=== PATIENT | female | born 1985 | race Hispanic/Latino ===

== ENCOUNTER 2019-05-06 18:01 | Emergency (ER) | payer BC, OTHER ==
[2019-05-06 19:06] LABS: Absolute Lymphocytes (CBC) 2.1 K/uL (0.7-4.9); Basophils % 0.5 % (0-1.3); Hematocrit 33.6 % (36.0-45.0); MPV 9.9 fL (7.6-11.3)
[2019-05-06 19:27] LABS: BUN Blood Urea Nitrogen 14 mg/dL (7-18); Bicarbonate 26 mmol/L (21-32); Glucose Level 104 mg/dL (74-106); Potassium 3.5 mmol/L (3.5-5.1); Sodium Level 141 mmol/L (136-145)
[2019-05-06] MEDS ORDERED: ONDANSETRON 4 MG/2 ML VIAL ONE (20:02)
[2019-05-06] MEDS ORDERED: AZITHROMYCIN 250 MG TAB ONE (20:02)
[2019-05-06] MEDS ORDERED: MORPHINE 2 MG/ML SYR ONE (20:02)
[2019-05-06] MEDS ORDERED: KETOROLAC 30 MG/ML INJ ONE (20:02)
[2019-05-06] MEDS ORDERED: CEFTRIAXONE/SWI 1gm 0 GM/0 ML SYR ONE (20:02)
--- NOTE | 2019-05-06 20:12 | RAD REPORT ---
EXAM DESCRIPTION: US - Transvaginal Study Probe - 05/06/2019 7:34 pm CLINICAL HISTORY: Pelvic pain COMPARISON: none FINDINGS: The uterus is retroverted measuring 9 x 4 x 5 centimeters. The endometrial stripe measures 5 millimeters.. A fibroid is not seen. The ovaries are normal in size and echotexture. Blood flow within each ovary. The right and left adnexal unremarkable. No significant free fluid is seen. IMPRESSION: Unremarkable pelvic ultrasound
--- NOTE | 2019-05-06 20:21 | RAD REPORT ---
EXAM DESCRIPTION: CT - Abdomen Pelvis W Contrast - 05/06/2019 7:58 pm CLINICAL HISTORY: Abdominal pain COMPARISON: none. TECHNIQUE: Computed axial tomography of the abdomen pelvis was obtained. 100 cc Isovue-300 was admin istered intravenously. Oral contrast was not requested which limits evaluation of bowel. All CT scans are performed using dose optimization technique as appropriate and may include automated exposure control or mA/KV adjustment according to patient size. FINDINGS: Gallstones with borderline gallbladder distention Postsurgical changes involve the stomach The liver, spleen, pancreas, adrenal and kidneys appear unremarkable. There is no evidence of diverticulitis. A portion of the appendix is seen and is normal caliber IMPRESSION: Cholelithiasis
[2019-05-06 20:24] LABS: Urine Blood 2+ (NEG); Urine Glucose NEGATIVE (NEG); Urine Protein NEGATIVE (NEG); Urine Specific Gravity >1.030 (1.005-1.030); Urine pH 5.5 (5.0-7.0)
--- NOTE | 2019-05-06 20:39 | ER ---
Nurse's Notes [facility] Name: Andreia Og Age: 33 yrs Sex: Female : 1985 Arrival Date: 05/06/2019 Time: 18:04 Bed 30 Private MD: None, None Diagnosis: Abdominal tenderness;Abdominal and pelvic pain;Cholelithiasis Presentation: 05/06 18:18 Presenting complaint: Patient states: PELVIC PAIN x3 WK, DENIES DYSURIA, VAGINAL bp BLEEDING. Transition of care: patient was not received from another setting of care. Onset of symptoms is unknown. Risk Assessment: Do you want to hurt yourself or someone else? Patient reports no desire to harm self or others. Initial Sepsis Screen: Does the patient meet any 2 criteria? No. Patient's initial sepsis screen is negative. Does the patient have a suspected source of infection? No. Patient's initial sepsis screen is negative. Care prior to arrival: None. 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 - Social history:: Smoking status: Patient/guardian denies using tobacco. - Ebola Screening: : No symptoms or risks identified at this time. - Family history:: not pertinent. Screenin:42 Abuse screen: Denies threats or abuse. Denies injuries from another. Nutritional aj1 screening: No deficits noted. Tuberculosis screening: No symptoms or risk factors identified. 19:30 Fall Risk None identified. wh Assessment: 18:42 General: Appears in no apparent distress. uncomfortable, Behavior is calm, cooperative, aj1 appropriate for age. Pain: Complains of pain in suprapubic area Pain does not radiate. Neuro: Level of Consciousness is awake, alert, obeys commands, Oriented to person, place, time, situation. Cardiovascular: Patient's skin is warm and dry. Respiratory: Airway is patent Respiratory effort is even, unlabored, Respiratory pattern is regular, symmetrical. GI: Abdomen is non-distended, Bowel sounds present X 4 quads. Abd is soft X 4 quads Abdomen is tender to palpation in suprapubic area Reports lower abdominal pain, nausea, Patient currently denies diarrhea, vomiting. : Denies burning with urination, discharge. EENT: No signs and/or symptoms were reported regarding the EENT system. Derm: No signs and/or symptoms reported regarding the dermatologic system. Skin is pink, warm \T\ dry. normal. Musculoskeletal: No signs and/or symptoms reported regarding the musculoskeletal system. Circulation, motion, and sensation intact. 19:20 Reassessment: Patient appears in no apparent distress at this time. No changes from previously documented assessment. Patient and/or family updated on plan of care and expected duration. Pain level reassessed. Patient is alert, oriented x 3, equal unlabored respirations, skin warm/dry/pink. 20:25 Reassessment: Patient appears in no apparent distress at this time. No changes from previously documented assessment. Patient and/or family updated on plan of care and expected duration. Pain level reassessed. Patient is alert, oriented x 3, equal unlabored respirations, skin warm/dry/pink. Vital Signs: 18:20 BP 124 / 81; Pulse 85; Resp 20; Temp 97.4; Pulse Ox 100% ; Weight 83.91 kg; Height 5 bp ft. (152.40 cm); 20:25 BP 115 / 79; Pulse 77; Resp 18; Pulse Ox 100% on R/A; wh 18:20 Body Mass Index 36.13 (83.91 kg, 152.40 cm) bp ED Course: 18:04 Patient arrived in ED. mr 18:05 None, None is Private Physician. mr 18:19 Triage completed. bp 18:20 Arm band placed on. bp 18:23 Yehuda Cameron MD is Attending Physician. fan 18:29 Katy Calix, RN is Primary Nurse. aj1 18:42 Patient has correct armband on for positive identification. Bed in low position. Call aj1 light in reach. 18:42 No provider procedures requiring assistance completed. aj1 18:56 Initial lab(s) drawn, by me, sent to lab. Inserted saline lock: 20 gauge in right lt1 antecubital area, using aseptic technique. 19:35 US Transvaginal Study (Probe) In Process Unspecified. EDMS 19:59 CT Abd/Pelvis - IV Contrast Only In Process Unspecified. EDMS 20:38 Gerard Walker MD is Referral Physician. [facility] 21:22 IV discontinued, intact, bleeding controlled, No redness/swelling at site. Administered Medications: 21:19 Drug: Rocephin 1 grams Route: IV; Rate: per protocol; Site: right antecubital; 21:20 Follow up: Response: No adverse reaction; IV Status: Completed infusion 21:20 Not Given (Patient Refused): TORadol 30 mg IVP once 21:20 Not Given (Patient Refused): morphine 2 mg IVP once; (PAIN>8) RASS on ADMN: Combtv4, wh Very Agttd3, Agttd2, Rstlss1, AlertClm0, Drwsy-1, LtSdtn-2, ModSdtn-3, DpSdtn-4, UnArsble-5 x2 21:20 Not Given (Patient Refused): Zofran 4 mg IVP once; over 2 minutes 21:20 Drug: Zithromax 1 grams Route: PO; 21:21 Follow up: Response: No adverse reaction Outcome: 20:[address] . [facility] 21:21 Discharged to home ambulatory, with family. 21:21 Condition: good 21:21 Discharge instructions given to patient, Instructed on discharge instructions, follow up and referral plans. no drinking with medication, no driving heavy equipment, medication usage, POC Abd pain and Pelvic Pain Demonstrated understanding of instructions, follow-up care, medications, POC Prescriptions given X 3. 21:22 Patient left the ED. Signatures: Dispatcher [employer] EDMS Katy Calix, RN RN aj1 Yehuda Cameron MD MD cha Rivera, Chaparrita mr Gersonnina [facility] Asaf Cantor, Karen Servin RN 1
--- NOTE | 2019-05-06 20:39 | EDPHYS ---
Physician Documentation [facility] Name: Andreia Og Age: 33 yrs Sex: Female : 1985 Arrival Date: 05/06/2019 Time: 18:04 Bed 30 Private MD: None, None ED Physician Yehuda Cameron HPI: 05/06 19:47 This 33 yrs old Female presents to ER via Ambulatory with complaints of fan Abdominal Pain. 19:47 The patient presents with abdominal pain in the lower abdomen, in the periumbilical fan area. Onset: The symptoms/episode began/occurred 1 month(s) ago. Onset: The symptoms/episode began/occurred 1 month(s) ago. Modifying factors: The symptoms are alleviated by remaining still, the symptoms are aggravated by movement, pressure. Associated signs and symptoms: The patient has no apparent associated signs or symptoms. The patient is sexually active, reportedly has a single partner. 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 - Social history:: Smoking status: Patient/guardian denies using tobacco. - Ebola Screening: : No symptoms or risks identified at this time. - Family history:: not pertinent. ROS: 19:47 Constitutional: Negative for fever, chills, and weight loss, Eyes: Negative for injury, fan pain, redness, and discharge, ENT: Negative for injury, pain, and discharge, Neck: Negative for injury, pain, and swelling, Cardiovascular: Negative for chest pain, palpitations, and edema, Respiratory: Negative for shortness of breath, cough, wheezing, and pleuritic chest pain, Back: Negative for injury and pain, : Negative for injury, bleeding, discharge, and swelling, MS/Extremity: Negative for injury and deformity, Skin: Negative for injury, rash, and discoloration, Neuro: Negative for headache, weakness, numbness, tingling, and seizure, Psych: Negative for depression, anxiety, suicide ideation, homicidal ideation, and hallucinations, Allergy/Immunology: Negative for hives, rash, and allergies, Endocrine: Negative for neck swelling, polydipsia, polyuria, polyphagia, and marked weight changes, Hematologic/Lymphatic: Negative for swollen nodes, abnormal bleeding, and unusual bruising. 19:47 Abdomen/GI: Positive for abdominal pain, of the suprapubic area. Exam: 19:47 Constitutional: This is a well developed, well nourished patient who is awake, alert, fan and in no acute distress. Head/Face: Normocephalic, atraumatic. Eyes: Pupils equal round and reactive to light, extra-ocular motions intact. Lids and lashes normal. Conjunctiva and sclera are non-icteric and not injected. Cornea within normal limits. Periorbital areas with no swelling, redness, or edema. ENT: Nares patent. No nasal discharge, no septal abnormalities noted. Tympanic membranes are normal and external auditory canals are clear. Oropharynx with no redness, swelling, or masses, exudates, or evidence of obstruction, uvula midline. Mucous membranes moist. Neck: Trachea midline, no thyromegaly or masses palpated, and no cervical lymphadenopathy. Supple, full range of motion without nuchal rigidity, or vertebral point tenderness. No Meningismus. Chest/axilla: Normal chest wall appearance and motion. Nontender with no deformity. No lesions are appreciated. Cardiovascular: Regular rate and rhythm with a normal S1 and S2. No gallops, murmurs, or rubs. Normal PMI, no JVD. No pulse deficits. Respiratory: Lungs have equal breath sounds bilaterally, clear to auscultation and percussion. No rales, rhonchi or wheezes noted. No increased work of breathing, no retractions or nasal flaring. Back: No spinal tenderness. No costovertebral tenderness. Full range of motion. Female : Normal external genitalia. Skin: Warm, dry with normal turgor. Normal color with no rashes, no lesions, and no evidence of cellulitis. MS/ Extremity: Pulses equal, no cyanosis. Neurovascular intact. Full, normal range of motion. Neuro: Awake and alert, GCS 15, oriented to person, place, time, and situation. Cranial nerves II-XII grossly intact. Motor strength 5/5 in all extremities. Sensory grossly intact. Cerebellar exam normal. Normal gait. Psych: Awake, alert, with orientation to person, place and time. Behavior, mood, and affect are within normal limits. 19:47 Abdomen/GI: Inspection: abdomen appears normal, Bowel sounds: normal, Palpation: mild abdominal tenderness, moderate abdominal tenderness, in the suprapubic area, Liver: no appreciated palpable abnormalities, Hernia: not appreciated. Vital Signs: 18:20 BP 124 / 81; Pulse 85; Resp 20; Temp 97.4; Pulse Ox 100% ; Weight 83.91 kg; Height 5 bp ft. (152.40 cm); 20:25 BP 115 / 79; Pulse 77; Resp 18; Pulse Ox 100% on R/A; wh 18:20 Body Mass Index 36.13 (83.91 kg, 152.40 cm) bp MDM: 18:23 Patient medically screened. [facility] 19:50 Data reviewed: vital signs, nurses notes, lab test result(s), radiologic studies, CT fan scan, ultrasound. 05/06 18:25 Order name: Abo/rh Typing; Complete Time: 19:40 [facility] 05/06 18:25 Order name: Basic Metabolic Panel; Complete Time: 19:40 [facility] 05/06 18:25 Order name: CBC with Diff; Complete Time: 19:40 [facility] 05/06 18:25 Order name: Sed Rate; Complete Time: 19:40 [facility] 05/06 19:06 Order name: Urine Dipstick--Ancillary (enter results); Complete Time: 20:28 05/06 19:06 Order name: Urine --Ancillary (enter results); Complete Time: 20:28 05/06 18:25 Order name: US Transvaginal Study (Probe); Complete Time: 20:23 [facility] 05/06 19:47 Order name: CT Abd/Pelvis - IV Contrast Only; Complete Time: 20:28 [facility] 05/06 19:53 Order name: Urine Culture [facility] 05/06 21:14 Order name: ABO/RH no charge EDNC 05/06 18:25 Order name: Urine Test (obtain specimen); Complete Time: 19:07 [facility] 05/06 18:25 Order name: IV Saline Lock; Complete Time: 18:56 [facility] 05/06 18:25 Order name: Labs collected and sent; Complete Time: 18:56 [facility] 05/06 18:25 Order name: NPO; Complete Time: 18:56 [facility] 05/06 18:25 Order name: Urine Dipstick-Ancillary (obtain specimen); Complete Time: 19:07 [facility] Administered Medications: 21:19 Drug: Rocephin 1 grams Route: IV; Rate: per protocol; Site: right antecubital; 21:20 Follow up: Response: No adverse reaction; IV Status: Completed infusion 21:20 Not Given (Patient Refused): TORadol 30 mg IVP once 21:20 Not Given (Patient Refused): morphine 2 mg IVP once; (PAIN>8) RASS on ADMN: Combtv4, wh Very Agttd3, Agttd2, Rstlss1, AlertClm0, Drwsy-1, LtSdtn-2, ModSdtn-3, DpSdtn-4, UnArsble-5 x2 21:20 Not Given (Patient Refused): Zofran 4 mg IVP once; over 2 minutes 21:20 Drug: Zithromax 1 grams Route: PO; 21:21 Follow up: Response: No adverse reaction Disposition: 05/06/19 20:38 Discharged to Home. Impression: Abdominal tenderness, Abdominal and pelvic pain, Cholelithiasis. - Condition is Stable. - Discharge Instructions: Abdominal Pain, Adult, Pelvic Pain, Female, Pelvic Pain, Female, [id number], Abdominal Pain, Adult, [id number], Pelvic Rest. - Prescriptions for Ibuprofen 600 mg Oral Tablet - take 1 tablet by ORAL route every 8 hours As needed take with food; 21 tablet. Tylenol- Codeine #3 300-30 mg Oral Tablet - take 2 tablet by ORAL route every 6 hours As needed; 30 tablet. Doxycycline Hyclate 100 mg Oral Tablet - take 1 tablet by ORAL route every 12 hours; 14 tablet. - Medication Reconciliation Form, Thank You Letter, Antibiotic Education, Prescription Opioid Use form. - Follow up: Private Physician; When: 2 - 3 days; Reason: Recheck today's complaints, Continuance of care, Re-evaluation by your physician. Follow up: Gerard Walker; When: 2 - 3 days; Reason: Recheck today's complaints, Re-evaluation by your physician. - Problem is new. - Symptoms have improved. Signatures: Dispatcher [employer] EDYehuda Lynch MD MD cha Habalo, Winsy wh Peltier, Asaf, RN RN bp Corrections: (The following items were deleted from the chart) 21:22 20:38 05/06/2019 20:38 Discharged to Home. Impression: Abdominal tenderness; Abdominal wh and pelvic pain; Cholelithiasis. Condition is Stable. Discharge Instructions: Abdominal Pain, Adult, Abdominal Pain, Adult, [id number], Pelvic Pain, Female, Pelvic Pain, Female, [id number], Pelvic Rest. Prescriptions for Ibuprofen 600 mg Oral Tablet - take 1 tablet by ORAL route every 8 hours As needed take with food; 21 tablet, Tylenol-Codeine #3 300-30 mg Oral Tablet - take 2 tablet by ORAL route every 6 hours As needed; 30 tablet, Doxycycline Hyclate 100 mg Oral Tablet - take 1 tablet by ORAL route every 12 hours; 14 tablet. and Forms are Medication Reconciliation Form, Thank You Letter, Antibiotic Education, Prescription Opioid Use. Follow up: Private Physician; When: 2 - 3 days; Reason: Recheck today's complaints, Continuance of care, Re-evaluation by your physician. Follow up: Gerard Walker; When: 2 - 3 days; Reason: Recheck today's complaints, Re-evaluation by your physician. Problem is new. Symptoms have improved. fan
[2019-05-06] MEDS ORDERED: CEFTRIAXONE/SWI 1gm 1 GM/10 ML SYR ONE (21:10)
[2019-05-06 22:40] VITALS: TEMP 97.4; O2SAT 100
[2019-05-06 22:42] VITALS: BP 115/79
== END 2019-05-06 21:22 | disposition home or self-care (01) ==
LOC: ER 18:01
DX: K80.20 Calculus of gallbladder without cholecystitis without obstruction (principal); R10.819 Abdominal tenderness, unspecified site
CPT/HCPCS: 87088; 85025; 87086; 80048; 36415; 86900; 81025; 86901; 85652; 81003; 74177; 76830; Q9967; J0696; 96374; 99284; J2270; J2405